=== PATIENT | male | born 1990 | race Caucasian/White ===

== ENCOUNTER 2018-01-26 05:49 | Emergency (ER) | payer SELFPAY ==
[2018-01-26] MEDS: HYDROCODONE/APAP (10/325) TAB PO (06:26)
[2018-01-26] MEDS: DIPHTH/TET/ACEL PERTUSS (ADULT) 0.5 ML VIAL IM* (06:26)
[2018-01-26] MEDS: LIDOCAINE 1%/EPI (MDV) 50 ML INJ INJ (06:40)
== END 2018-01-26 08:15 | disposition home or self-care (01) ==
LOC: FTE 05:49
DX: S01.81XA Laceration without foreign body of other part of head, initial encounter (principal); Y04.2XXA Assault by strike against or bumped into by another person, initial encounter; Z23 Encounter for immunization
CPT/HCPCS: 12011; 70450; 70486; 90471; 90715; 99284-25

== ENCOUNTER 2018-01-29 08:25 | Emergency (ER) | payer SELFPAY | END 2018-01-29 08:56 | disposition home or self-care (01) | LOC: FTE 08:25 | DX: Z48.01 Encounter for change or removal of surgical wound dressing (principal); R40.2412 Glasgow coma scale score 13-15, at arrival to emergency department | CPT/HCPCS: 99281 ==